=== PATIENT | male | born 1945 | race Caucasian/White ===

== ENCOUNTER 2017-01-05 10:14 | Outpatient (CLI) | payer MEDICARE, MEDICAID ==
[2017-01-05 12:25] LABS: Amphetamine Not Detected (NotDetected); Barbiturates Screen Not Detected (NotDetected); Benzodiazepine Screen Not Detected (NotDetected); Cocaine Metabolite Screen Not Detected (NotDetected); Medtox Control Line Valid? VALID (VALID); Methadone Not Detected (NotDetected); Methamphetamine Not Detected (NotDetected); Opiate Screen Not Detected (NotDetected); Oxycodone Screen Not Detected (NotDetected); Phencyclidine (PCP) Not Detected (NotDetected); THC/Cannabinoid Screen Not Detected (NotDetected); Tricyclic Screen Not Detected (NotDetected)
== END 2017-01-05 10:15 | disposition home or self-care (01) ==
LOC: HPCALD 10:14
PROVIDERS: ATTEND Family Medicine
DX: Z51.81 Encounter for therapeutic drug level monitoring (principal); Z79.891 Long term (current) use of opiate analgesic
CPT/HCPCS: 80306

== ENCOUNTER 2017-01-05 14:31 | Outpatient (CLI) | payer MEDICARE, MEDICAID ==
--- NOTE | 2017-01-05 19:53 | RAD ---
ABDOMEN 01/05/17 Supine view of the abdomen show a nonspecific bowel gas pattern with gas seen in nondistended large and small bowel. There is a large amount of fecal material in the colon. Numerous pelvic calcificati ons are probably phleboliths. Some mild degenerative changes are seen in the spine. IMPRESSION: Constipation with nonspecific bowel gas pattern. POS: HOME
== END 2017-01-05 14:32 | disposition home or self-care (01) ==
LOC: BURRAD 14:31
PROVIDERS: ATTEND Internal Medicine Gastroenterology
DX: R10.32 Left lower quadrant pain (principal); R19.4 Change in bowel habit; K59.00 Constipation, unspecified
CPT/HCPCS: 74000; 80306

== ENCOUNTER 2017-01-10 13:15 | Outpatient (CLI) | payer MEDICARE, MEDICAID ==
[2017-01-10 16:46] LABS: Amphetamine Not Detected (NotDetected); Barbiturates Screen Not Detected (NotDetected); Benzodiazepine Screen Not Detected (NotDetected); Cocaine Metabolite Screen Not Detected (NotDetected); Methadone Not Detected (NotDetected); Methamphetamine Not Detected (NotDetected); Opiate Screen Not Detected (NotDetected); Oxycodone Screen Not Detected (NotDetected); Phencyclidine (PCP) Not Detected (NotDetected); THC/Cannabinoid Screen Not Detected (NotDetected); Tricyclic Screen Not Detected (NotDetected)
[2017-01-10 16:47] LABS: Medtox Control Line Valid? VALID (VALID)
== END 2017-01-10 13:16 | disposition home or self-care (01) ==
LOC: HPCALD 13:15
PROVIDERS: ATTEND Family Medicine
DX: Z51.81 Encounter for therapeutic drug level monitoring (principal); Z79.891 Long term (current) use of opiate analgesic
CPT/HCPCS: 80306